=== PATIENT | female | born 1990 | race Caucasian/White ===

== ENCOUNTER 2020-07-07 04:37 | Emergency (ER) | payer OTHER, SELFPAY ==
--- NOTE | ~2020-07-07 | CT_ITS ---
EXAMINATION: CTA chest PE abdomen pel DATE: 07/07/2020 06:07 INDICATION: Chest pain. TECHNIQUE: Computed tomography angiography (CTA) of the chest was performed with 100 mL Omnipaque-350 intravenous contrast timed to evaluate the pulmonary arteries. Coronal maximum intensity projection 3D-reconstructions were created by the technologist. Computed tomography (CT) of the abdomen and pelv is was performed with intravenous contrast. Automated exposure control and iterative reconstruction t echnique were employed. The dose-length product was 777.12 mGy-cm. COMPARISON: None. FINDINGS: CTA chest: There is mild scarring at the lung apices. No pleural effusion. The heart size is normal. No pericardial effusion. There is no pulmonary embolus. CT abdomen and pelvis: The liver, gallbladder, spleen, pancreas, adrenal glands, and kidneys are norm al. There are no dilated loops of bowel. The appendix is normal. There are no pathologically enlarged lymph nodes. There is no free intraperitoneal fluid. The bones are unremarkable. IMPRESSION: 1. No pulmonary embolus. 2. No etiology for the patient's symptoms. Reviewed, dictated and finalized at location A.
[2020-07-07 04:41] VITALS: BP 128/51; PULSE 70; RESP 16; TEMP 36.9; O2SAT 99
[2020-07-07 04:47] VITALS: BP 120/63; PULSE 67; RESP 14; TEMP 36.9; O2SAT 100
--- NOTE | 2020-07-07 04:49 | ECG_ITS ---
Measurements Intervals [place] Rate: 63 P: 56 OR: 147 QRS: 86 QRSD: 96 T: 39 QT: 401 QTc: 411 Interpretive Statements SINUS RHYTHM MINIMAL Q WAVES- ANTEROLAT/INF LEADS BASELINE ARTIFACT- I, II, III, AVR, AVL, AVF, V1-V6 BORDERLINE ECG Electronically Signed On 07-07-2020 6:56:25 CDT by Sadiq Tee D.O.
--- NOTE | 2020-07-07 04:53 | PC.NURSE ---
Pt ambulated in yung to restroom and was unable to provide sample. Pt aware of need for urine and voices her understanding. Specimen cup provided.
[2020-07-07] MEDS: ASPIRIN 81 MG CHEWABLE TABLET 324 MG PO (05:02)
[2020-07-07 05:09] LABS: Basophils Absolute Auto 0.1 K/mm3 (0.0-0.1); Basophils Percent Auto 0.6 % (0.2-1.2); Eosinophils Absolute Auto 0.2 K/mm3 (0-0.3); Eosinophils Percent Auto 1.9 % (0-4.4); Hemoglobin 13.9 g/dL (12.0-15.0); Immature Granulocyte Absolute 0.02 K/mm3 (0.00-0.031); Immature Granulocyte Percent A 0.2 % (0-0.5); Lymphocytes Absolute Auto 4.15 K/mm3 (0.9-3.2); Lymphocytes Percent Auto 49.8 % (18.3-44.2); Mean Corpuscular HGB Conc 33.9 g/dl (32-36); Mean Corpuscular Hemoglobin 29.6 pg (26-34); Mean Corpuscular Volume 87.4 fl (80-100); Mean Platelet Volume 10.1 fl (7.4-10.4); Monocytes Absolute Auto 0.5 K/mm3 (0.1-0.6); Monocytes Percent Auto 6.1 % (2.6-8.5); Neutrophils Absolute Auto 3.5 K/mm3 (1.3-6.7); Neutrophils Percent Auto 41.4 % (45.5-73.1); Platelet Count Result 257 k/mm3 (150-375); Red Blood Count 4.69 M/mm3 (4.2-5.4); Red Cell Distribution Width 12.7 % (11.5-14.5); White Blood Count 8.3 K/mm3 (4.5-10.0)
[2020-07-07 05:24] LABS: INR 0.9; Prothrombin Time 12.3 Seconds (11.1-14.7)
[2020-07-07 05:25] LABS: Partial Thromboplastin Time 23.8 SECONDS (22.3-36.8)
[2020-07-07 05:33] LABS: Alanine Aminotransferase 14 U/L (4-35); Albumin Level 4.2 g/dL (3.5-5.1); Alkaline Phosphatase 64 U/L (38-126); Anion Gap 5 mmol/L (8-16); Aspartate Amino Transferase 27 U/L (14-36); Bilirubin,Total 0.1 mg/dL (0.2-1.3); Blood Urea Nitrogen 13 mg/dL (7-17); Calcium 9.3 mg/dL (8.4-10.2); Carbon Dioxide 27 mmol/L (22-30); Chloride 105 mmol/L (98-107); Estimated CRCL calculation 81 ml/min; Estimated Glomerular Filt Rate > 60; Glucose 99 mg/dL (65-105); Magnesium 1.7 mg/dL (1.6-2.3); Potassium 3.8 mmol/L (3.4-5.0); Sodium 137 mmol/L (137-145)
[2020-07-07 05:34] LABS: Troponin I < 0.012 ng/mL (0.000-0.034)
--- NOTE | 2020-07-07 05:39 | ED.GENADULT ---
HPI - General Adult General Chief complaint: Chest Pain <Dimitry Hurd MD - Last Filed: 07/07/20 05:40> Stated complaint: CHEST PAIN X1D <Dimitry Hurd MD - Last Filed: 07/07/20 05:40> Time Seen by Provider: 07/07/20 04:49 <Dimitry Hurd MD - Last Filed: 07/07/20 05:40> History of Present Illness HPI narrative: Patient is a 30-year-old female presents to emergency department with chief complaint of chest pain. Patient reports that she just completed a car ride for for medication and also takes oral contraceptive pills. The patient reports she has sharp pain in her chest rate. Patient reports that it is worse with inspiration. Patient states that she has no prior history of pulmonary embolisms no prior history of cardiac disease no family history for clotting disorder. Patient denies smoking. <Dimitry Hurd MD - Last Filed: 07/07/20 05:40> Related Data Allergies/adverse reactions: Allergies Allergy/AdvReac Type Severity Reaction Status Date / Time No Known Allergies Allergy Verified 04/27/18 13:25 <Dimitry Hurd MD - Last Filed: 07/07/20 05:40> Review of Systems Review of Systems: Narrative: A 10 system review of systems was completed on the patient and is negative except for what is stated in the HPI. Nursing and ancillary documentation was reviewed. <Dimityr Hurd MD - Last Filed: 07/07/20 05:40> [facility] Family History Family History: Family History Mother Patient's mother is in good health Family history of irritable bowel syndrome Father Patient's father is in good health Sibling Patient's sister is in good health <Dimitry Hurd MD - Last Filed: 07/07/20 05:40> Social History Social History: Social History Smoking status: Never smoker Alcohol intake: current <Dimitry Hurd MD - Last Filed: 07/07/20 05:40> Exam Narrative: Exam Narrative: GENERAL: Well-appearing, well-nourished, and in no acute distress. HEAD: Normocephalic, atraumatic. EYES: PERRLA and EOMI. ENT: Nares clear, no rhinorrhea or epistaxis. Mucous membranes moist. NECK: Supple. CHEST: Clear to auscultation. No respiratory distress. HEART: Regular rate and rhythm. No murmur heard. Normal peripheral pulses. ABDOMEN: Soft, nontender, nondistended, normal active bowel sounds. EXTREMITIES: Normal range of motion. No edema. SKIN: Warm, dry, no rash. NEURO: No focal deficits. Alert and oriented x3. PSYCH: Normal mood and affect. <Dimitry Hurd MD - Last Filed: 07/07/20 05:40> Course Vital Signs Vital signs: Vital Signs Temperature 36.9 C 07/07/20 04:41 Pulse Rate 70 07/07/20 04:41 Respiratory Rate 16 07/07/20 04:41 Blood Pressure 128/51 L 07/07/20 04:41 Pulse Oximetry 99 07/07/20 04:41 Temperature 36.9 C 07/07/20 04:47 Pulse Rate 83 07/07/20 07:08 Respiratory Rate 19 07/07/20 07:08 Blood Pressure 115/64 07/07/20 07:08 Pulse Oximetry 100 07/07/20 07:08 <Dimitry Hurd MD - Last Filed: 07/07/20 05:40> Vital Signs Temperature 36.9 C 07/07/20 04:41 Pulse Rate 70 07/07/20 04:41 Respiratory Rate 16 07/07/20 04:41 Blood Pressure 128/51 L 07/07/20 04:41 Pulse Oximetry 99 07/07/20 04:41 Temperature 36.9 C 07/07/20 04:47 Pulse Rate 83 07/07/20 07:08 Respiratory Rate 19 07/07/20 07:08 Blood Pressure 115/64 07/07/20 07:08 Pulse Oximetry 100 07/07/20 07:08 <Ra Perez MD - Last Filed: 07/07/20 07:32> Medical Decision Making Vital Signs Vital Signs: Vital Signs Temperature 36.9 C 07/07/20 04:41 Pulse Rate 70 07/07/20 04:41 Respiratory Rate 16 07/07/20 04:41 Blood Pressure 128/51 L 07/07/20 04:41 Pulse Oximetry 99 07/07/20 04:41 Temperature
[2020-07-07 05:45] VITALS: BP 120/71; PULSE 72; RESP 17; O2SAT 100
--- NOTE | 2020-07-07 05:53 | PC.NURSE ---
Pt to via cart.
[2020-07-07 05:54] LABS: Add Urine Microscopic? YES; Appearance Urine Clear (Clear); Bacteria Urine Trace /hpf; Bilirubin Urine Negative (Negative); Blood Urine Negative (Negative); Color Urine Straw (Yellow); Glucose Urine UA Negative (Negative); Ketones Urine Negative (Negative); Leukocyte Esterase Ur Trace LEU/UL (Negative); Mucus Urine Rare /lpf; Nitrate Urine Negative (Negative); Protein Urine Negative (Negative); RBC Urine 0-2 /hpf (0-2); Specific Grav Ur 1.009 (1.001-1.035); Urobilinogen Urine Negative mg/dL (<2.0); WBC Urine 0-3 /hpf
--- NOTE | 2020-07-07 06:05 | PC.NURSE ---
Pt returned from ct.
--- NOTE | 2020-07-07 07:04 | PC.NURSE ---
Pt resting on cart in its lowest position with call button and personal items within reach. Spouse remains at bedside. Pt remains alert, stable and in no obvious distress. Advised to press call button for assistance.
[2020-07-07 07:08] VITALS: BP 115/64; PULSE 83; RESP 19; O2SAT 100
[2020-07-07 08:02] VITALS: BP 111/56; PULSE 65; RESP 20; O2SAT 100
== END 2020-07-07 08:05 | disposition home or self-care (01) ==
PROVIDERS: Emergency Medicine; Emergency Provider Family Medicine; PCP Physician Assistant
DX: R07.89 Other chest pain (principal); R94.31 Abnormal electrocardiogram [ECG] [EKG]
CPT/HCPCS: 36415; 71275; 74177; 80053; 81001; 81025; 83735; 84484; 85025; 85610; 85730; 93005; 99284; A9270; Q9967

== ENCOUNTER 2023-05-26 13:45 | Outpatient (RCR) | payer OTHER, SELFPAY ==
[2023-05-27] MEDS: RHO(D) IMMUNE GLOBULIN 300 MCG/2 ML SYRINGE IM (15:21)
== END 2023-08-24 23:59 | disposition home or self-care (01) ==
LOC: ANHLAB 13:45
PROVIDERS: PCP Physician Assistant; Visit Provider Obstetrics & Gynecology
DX: Z29.13 Encounter for prophylactic Rho(D) immune globulin (principal); O36.0190 Maternal care for anti-D [Rh] antibodies, unspecified trimester, not applicable or unspecified; Z3A.00 Weeks of gestation of pregnancy not specified
CPT/HCPCS: 36415; 85461; 86850; 86900; 86901; 90384; 96372; J2790

== ENCOUNTER 2023-08-08 17:43 | Outpatient (CLI) | payer OTHER, SELFPAY ==
--- NOTE | 2023-08-08 18:20 | PC.NURSE ---
Called Dr. Bolden with pt status. Pt admitted with complaints of leaking of fluid. ROM plus negative. Pt denies feeling contractions. May D/C home.
== END 2023-08-08 18:30 | disposition home or self-care (01) ==
LOC: ANHOBOP 18:30 → ANHLDR 08-15 07:53
PROVIDERS: PCP Physician Assistant; Visit Provider Obstetrics & Gynecology
DX: O41.8X90 Other specified disorders of amniotic fluid and membranes, unspecified trimester, not applicable or unspecified (principal); Z3A.00 Weeks of gestation of pregnancy not specified
CPT/HCPCS: 59025; 84112; 99199

== ENCOUNTER 2023-08-09 18:06 | Inpatient (IN) | payer OTHER, SELFPAY ==
[2023-08-09] VITALS (14 sets, daily range): BP systolic 100–136; BP diastolic 51–94; PULSE 51–76; TEMP 36.5–36.6; BMI 28.3
[2023-08-09 18:48] LABS: Basophils Percent Auto 0.2 % (0.2-1.2); Eosinophils Percent Auto 0.4 % (0-4.4); Hematocrit 35.2 % (37.0-47.0); Immature Granulocyte Absolute 0.06 K/mm3 (0.00-0.031); Immature Granulocyte Percent A 0.6 % (0-0.5); Lymphocytes Absolute Auto 2.21 K/mm3 (0.9-3.2); Lymphocytes Percent Auto 23.6 % (18.3-44.2); Mean Corpuscular HGB Conc 34.1 g/dl (32-36); Mean Corpuscular Hemoglobin 29.9 pg (26-34); Mean Corpuscular Volume 87.8 fl (80-100); Mean Platelet Volume 11.1 fl (7.4-10.4); Monocytes Absolute Auto 0.4 K/mm3 (0.1-0.6); Monocytes Percent Auto 3.8 % (2.6-8.5); Neutrophils Absolute Auto 6.7 K/mm3 (1.3-6.7); Neutrophils Percent Auto 71.4 % (45.5-73.1); Platelet Count Result 178 k/mm3 (150-375); Red Blood Count 4.01 M/mm3 (4.2-5.4); Red Cell Distribution Width 13.3 % (11.5-14.5); White Blood Count 9.4 K/mm3 (4.5-10.0)
--- NOTE | 2023-08-09 19:13 | LDADM ---
This patient, Yin Li, was admitted to Labor/Delivery/Recovery 106 on 08/09/23 at 18:06. Plans for labor, pain management and were discussed with patient. Patient/family oriented to hospital policies and general routines including ID bracelet, bed and alarms, visiting hours, pain management, procedures, bathroom and other care routines, personal items, smoking policy, room service/diet and guest tray routines, infant security routines, and visiting hours. Patient/Family are encouraged to report perceived risks to care and to ask questions if they do not understand what they are told or what they should do. See OBIX for further documentation.
--- NOTE | 2023-08-09 19:20 | WPDANESEPP ---
Anes - Eval Pre Procedure Procedure: Labor epidural Date/Time: 08/09/23 19:20 Surgeon: Nina Kennedy Preop Diagnosis: Abdominal pain with contractions Pre Op Diagnosis: Induction of Labor Patient Data Age: 33 Gender: F Height: 1.73 m Weight: 84.5 kg Last Vital Signs Pulse 65 08/09/23 19:15 BP 124/69 08/09/23 19:15 O2 Del Method Room Air 08/09/23 19:12 Allergies Allergy/AdvReac Type Severity Reaction Status Date / Time No Known Allergies Allergy Verified 07/19/23 15:30 Home Medications Medication Instructions Recorded Confirmed Type vits no.126-ferrous fum 1 tablet PO DAILY 07/19/23 07/19/23 History 28 mg iron-folic acid 800 mcg tablet (Classic ) amoxicillin 500 mg tablet 500 mg DAILY 08/09/23 08/09/23 History Laboratory Tests 08/09/23 08/09/23 18:39 18:40 WBC 9.4 K/mm3 (4.5-10.0) RBC 4.01 L M/mm3 (4.2-5.4) Hgb 12.0 g/dL (12.0-15.0) Hct 35.2 L % (37.0-47.0) MCV 87.8 fl (80-100) MCH 29.9 pg (26-34) MCHC 34.1 g/dl (32-36) RDW 13.3 % (11.5-14.5) Plt Count 178 k/mm3 (150-375) MPV 11.1 H fl (7.4-10.4) Immature Gran % (Auto) 0.6 H % (0-0.5) Neut % (Auto) 71.4 % (45.5-73.1) Lymph % (Auto) 23.6 % (18.3-44.2) [place] % (Auto) 3.8 % (2.6-8.5) Eos % (Auto) 0.4 % (0-4.4) Baso % (Auto) 0.2 % (0.2-1.2) Lymph # (Auto) 2.21 K/mm3 (0.9-3.2) [place] # (Auto) 0.4 K/mm3 (0.1-0.6) Eos # (Auto) 0.0 K/mm3 (0-0.3) Baso # (Auto) 0.0 K/mm3 (0.0-0.1) Abs Immat Gran (auto) 0.06 H K/mm3 (0.00-0.031) Absolute Neuts (auto) 6.7 K/mm3 (1.3-6.7) Absolute Nucleated RBC 0.000 K/mm3 (0.0-0.012) Nucleated RBC % 0.0 % (0.0-0.2) RPR Pending HIV 1&2 Ab/P24 Ag 4thGn Pending Blood Type Pending Antibody Screen Pending : gestational age HCG: positive Patient hx anesthesia problems: none Family hx anesthesia problems: none Results Review: All pre-operative results and documents have been reviewed as part of the pre-operative evaluation. [facility] Past Medical History Medical History Overweight (BMI 25.0-29.9) and not yet delivered Family History Family History (Updated 07/19/23 @ 15:43 by Kaylin Pruitt RN) Mother Patient's mother is in good health Family history of irritable bowel syndrome Rheumatoid arthritis Father Patient's father is in good health Sibling Patient's sister is in good health Social History Social History Smoking status: Never smoker Second hand tobacco smoke exposure: No Alcohol intake: current Substance use: never Do You Feel Safe in your Home?: Yes Lack of Transportation: No Lack of Food: Never True Current Housing: I Have Housing Concerned About Future Housing: No Difficulty Paying Gas/Electric Bills: No Difficulty Paying for Meds: No Currently Unemployed: No Education: Bachelor's Degree Difficulty w/ Childcare or Family Care: No Spiritual care concerns: No Exam Day of Procedure 08/09/23 19:20 Patient weight: overweight
[2023-08-09 19:39] LABS: HIV 1/2 Ab P24 Ag Result Negative (Negative)
[2023-08-09] MEDS: DINOPROSTONE 10 MG VAG INSERT VAGINAL (19:42)
[2023-08-10] VITALS (89 sets, daily range): BP systolic 101–135; BP diastolic 44–97; PULSE 55–176; RESP 15–18; TEMP 36.3–36.8; O2SAT 96–100
--- NOTE | 2023-08-10 06:42 | PM.IMHP ---
H&P: HPI History of Present Illness Date/Time: 08/10/23 06:42 Chief Complaint: for induction Narrative: this is a 33-year-old 1 0 whose last menstrual period gives an EDC of 6 1 24 presents at 39 and half weeks gestation for induction of labor. has been uncomplicated. Her cervix is somewhat favorable. [facility] Past Medical History Medical History (Updated 08/10/23 @ 06:45 by Yanick Kennedy MD) Overweight (BMI 25.0-29.9) and not yet delivered Term Family History Family History Mother Patient's mother is in good health Family history of irritable bowel syndrome Rheumatoid arthritis Father Patient's father is in good health Sibling Patient's sister is in good health Social History Social History Smoking status: Never smoker Second hand tobacco smoke exposure: No Alcohol intake: current Substance use: never Do You Feel Safe in your Home?: Yes Lack of Transportation: No Lack of Food: Never True Current Housing: I Have Housing Concerned About Future Housing: No Difficulty Paying Gas/Electric Bills: No Difficulty Paying for Meds: No Currently Unemployed: No Education: Bachelor's Degree Difficulty w/ Childcare or Family Care: No Spiritual care concerns: No Meds Home Medications and Allergies Home Medications Medication Instructions Recorded Confirmed Type vits no.126-ferrous fum 1 tablet PO DAILY 07/19/23 07/19/23 History 28 mg iron-folic acid 800 mcg tablet (Classic ) amoxicillin 500 mg tablet 500 mg DAILY 08/09/23 08/09/23 History Allergies Allergy/AdvReac Type Severity Reaction Status Date / Time No Known Allergies Allergy Verified 07/19/23 15:30 Vital Signs Vital Signs - 24 hr 08/09/23 18:30 08/09/23 18:45 08/09/23 19:00 Temperature 97.7 F Pulse Rate 72 76 69 Blood Pressure 131/74 109/81 125/70 Oxygen Delivery 08/09/23 19:15 08/09/23 19:30 08/09/23 19:45 Temperature Pulse Rate 65 66 59 L Blood Pressure 124/69 136/73 115/94 H Oxygen Delivery 08/09/23 20:00 08/09/23 20:15 08/09/23 20:30 Temperature Pulse Rate 57 L 56 L 70 Blood Pressure 130/74 122/66 106/62 Oxygen Delivery 08/09/23 20:45 08/09/23 21:00 08/09/23 21:15 Temperature Pulse Rate 59 L 58 L 53 L Blood Pressure 109/54 L 103/61 109/54 L Oxygen Delivery 08/09/23 21:30 08/10/23 02:00 08/09/23 22:30 Temperature 98 F Pulse Rate 51 L 59 L Blood Pressure 100/51 L 132/66 Oxygen Delivery 08/10/23 02:30 08/09/23 19:12 Temperature 97.3 F L Pulse Rate Blood Pressure Oxygen Delivery Room Air Exam Const: General: cooperative, healthy appearing and comfortable Nutritional Appearance: average body habitus Orientation/consciousness: oriented to person, oriented to place and oriented to time HENMT: Head: normal to inspection Resp: Effort & Inspection: normal respiratory effort Cardio: Rate: regular rate Rhythm: regular rhythm Heart sounds: S1 normal heart sound present and S2 normal heart sound present GI: Inspection: normal to inspection ( Gravid soft uterus) : Speculum Exam - Vagina: normal appearance of the vagina Speculum Exam - Cervix: normal appearance of the cervix ( cervix 2/50/2. AROM. FHT reassuring) H&P: Results Labs Labs: Short CBC 08/09/23 Range/Units 18:40 WBC 9.4 (4.5-10.0) K/mm3 Hgb 12.0 (12.0-15.0) g/dL Hct 35.2 L (37.0-47.0) % Plt Count 178 (150-375) k/mm3 Assessment and Plan Assessment and plan (1) : Code(s): Z34.90 - Encounter for supervision of normal , unspecified, unspecified trimester Status: Acute Plan medical induction of labor. Spontaneous vaginal delivery is expected. She is an epidural candidate
[2023-08-10] MEDS: LACTATED RINGERS 1,000 ML 125 ML IV CONT ×2 (07:34→09:59)
[2023-08-10] MEDS: OXYTOCIN 30 UNITS/NS 500 ML 30 UNITS/500 ML BAG 6 UNITS IV CONT (07:35)
[2023-08-10] MEDS: fentaNYL CITRATE INJ (*CRX) 100 MCG/2 ML VIAL 50 MCG IV PUSH (10:12)
--- NOTE | 2023-08-10 12:11 | PM.OBPNLAB ---
Pain Control Date/time seen: 08/10/23 12:11 Pain control: tolerating well and epidural Pelvic Exam Dilation (cm): 3 Effacement (%): 90 station: -2 Amniotic membrane status: Leaking
--- NOTE | 2023-08-10 14:26 | PM.OBPRVD ---
OB - Vaginal Delivery Note Procedure Delivery date: 08/10/23 Events: Elective Induction of Labor Induction method: AROM Delivery augmentation: Pitocin Delivery monitor: External FHT and External Uterine Episiotomy description: None Laceration Description: None Specimen: No Quantitative Blood Loss (ml): 61 Anesthesia type: Epidural Disposition: Floor Complications: No immediate complications Baby Date of : 08/10/23 Time of : 14:18 Weeks of gestation at delivery: 39 Infant gender: Male presentation: vertex position: Right Occiput Anterior Placenta delivery description: Spontaneous Cord Vessel Description: 3 Vessels, Nuchal Cord, Tight and Clamped/Cut score one minute: 8 score five minutes: 9
--- NOTE | 2023-08-10 14:27 | P.DS_ITS ---
DS: Admitting Diagnosis Discharge Date 08/12/23 Admitting Diagnosis Term DS: Discharge Diagnosis Discharge Diagnosis (1) : Code(s): Z34.90 - Encounter for supervision of normal , unspecified, unspecified trimester Status: Acute DS: Summary Hospital Course Reason for hospitalization: patient was admitted for induction of labor on 08/10/2023 Hospital Course: patient underwent spontaneous vaginal delivery on 08/10/2023 with a dural Anesthesia. Her hospital course remarkable. She remained afebrile. She was up, voiding without difficulty, ambulating and eating regular diet, and generally without complaints. Time Spent with Patient Time attestation: Total time spent providing and/or coordinating discharge services: Exam Const: General: cooperative, healthy appearing and comfortable Nutritional Appearance: average body habitus Orientation/consciousness: oriented to person, oriented to place and oriented to time Resp: Effort & Inspection: normal respiratory effort Cardio: Rate: regular rate Rhythm: regular rhythm Heart sounds: S1 normal heart sound present and S2 normal heart sound present GI: Inspection: normal to inspection DS: Data Data Completed and Pending Labs on day of discharge: Labs from last 24 hours 08/09/23 08/09/23 18:40 18:39 WBC 9.4 RBC 4.01 L Hgb 12.0 Hct 35.2 L MCV 87.8 MCH 29.9 MCHC 34.1 RDW 13.3 Plt Count 178 MPV 11.1 H Immature Gran % (Auto) 0.6 H Neut % (Auto) 71.4 Lymph % (Auto) 23.6 [place] % (Auto) 3.8 Eos % (Auto) 0.4 Baso % (Auto) 0.2 Lymph # (Auto) 2.21 [place] # (Auto) 0.4 Eos # (Auto) 0.0 Baso # (Auto) 0.0 Abs Immat Gran (auto) 0.06 H Absolute Neuts (auto) 6.7 Absolute Nucleated RBC 0.000 Nucleated RBC % 0.0 RPR Pending HIV 1&2 Ab/P24 Ag 4thGn Negative Blood Type A Negative Antibody Screen Positive Antibody Identification Passive Due to RH Imm Glob Antigen Identification TNP BRIANDA, IgG Interpret Neg BRIANDA, Poly Interpret Not Performed BRIANDA, Complement Interp Negative Discharge Plan Discharge Attending physician on discharge: Yanick Swain Discharging Clinician: Yanick Swain Patient Disposition: Home, Self-Care Activity: may shower and pelvic rest Diet: heart healthy Wound Care Instructions: follow printed instructions Patient Instructions: Antibiotic Form Stand Alone Forms: General Discharge Information Follow-up/Referrals: Yanick Swain MD [Physician] - Discharge Medications: Continued Classic 28 mg iron- 800 mcg Tablet 1 tablet PO DAILY amoxicillin 500 mg tablet 500 mg DAILY Date of admission: 08/09/23 18:06 Primary Care Provider: ChristopherAlise Admitting Provider: Yanick Swain Attending physician on admission: Yanick Swain Condition: Stable
[2023-08-10 14:53] LABS: Rapid Plasma Reagin Non-Reactive (NonReactive)
[2023-08-10] MEDS: OXYTOCIN 30 UNITS/NS 500 ML 30 UNITS/500 ML BAG 125 UNITS IV CONT (14:53)
[2023-08-10] MEDS: WITCH HAZEL 40 PADS 1 PAD TOPICAL (16:50)
[2023-08-10] MEDS: DOCUSATE SODIUM 100 MG CAPSULE PO (23:33)
[2023-08-11 05:08] VITALS: BP 110/70; PULSE 66; RESP 18; TEMP 36.7; O2SAT 100
[2023-08-11 05:54] LABS: Hematocrit 35.9 % (37.0-47.0); Hemoglobin 11.8 g/dL (12.0-15.0)
--- NOTE | 2023-08-11 06:54 | PM.OBPNVD ---
OB - PN: Subj Subjective Date/time seen: 08/11/23 06:54 Patient comments: no complaints and pain well controlled baby status: doing well OB - PN: Obj Data Labs 08/11/23 05:04 Labs: Laboratory Results - last 24 hr 08/09/23 08/11/23 18:39 05:04 Hgb 11.8 L Hct 35.9 L RPR Non-reactive OB - PN A/P Plan day: 1 Plan: routine care Time Spent With Patient Time: Total time spent is greater than 50% in coordination of care (as documented) at patient's floor/unit and/or counseling patient: Time with patient: less than 15 minutes Exam Const: General: cooperative, healthy appearing and comfortable Nutritional Appearance: average body habitus Orientation/consciousness: oriented to person, oriented to place and oriented to time HENMT: Head: normal to inspection Resp: Effort & Inspection: normal respiratory effort Cardio: Rate: regular rate Rhythm: regular rhythm Heart sounds: S1 normal heart sound present and S2 normal heart sound present GI: Inspection: normal to inspection
[2023-08-11 08:40] VITALS: BP 109/62; PULSE 61; RESP 16; TEMP 36.3; O2SAT 99
--- NOTE | 2023-08-11 08:55 | WPDANLDPN2 ---
Anes-Prog Note L&D Date/Time: 08/11/23 08:55 Comfortable throughout: labor and delivery Neuraxial method: epidural Epidural/Spinal procedure site: clean & non-tender Neuro status: Neuro function grossly intact. Cardiovascular status: normal Respiratory status: normal Airway patency: baseline Mental status: baseline Post-Op hydration status: normal Vital Signs: Last Vital Signs Temp 36.7 C 08/11/23 05:08 Pulse 66 08/11/23 05:08 Resp 18 08/11/23 05:08 BP 110/70 08/11/23 05:08 Pulse Ox 100 08/11/23 05:08 O2 Del Method Room Air 08/11/23 05:08 Pain score (VAS): 0 Post-procedural complaints: none Patient feedback: Patient satisfied with anesthetic care.
[2023-08-11 12:12] VITALS: BP 104/67; PULSE 63; RESP 16; TEMP 36.3; O2SAT 99
[2023-08-11] MEDS: ACETAMINOPHEN 325 MG TABLET 650 MG PO (15:16)
[2023-08-11 19:50] VITALS: BP 113/65; PULSE 57; RESP 18; TEMP 36.9
[2023-08-11] MEDS: IBUPROFEN 600 MG TABLET PO (19:55)
--- NOTE | 2023-08-12 06:31 | PM.OBPNVD ---
OB - PN: Subj Subjective Date/time seen: 08/12/23 06:31 Patient comments: no complaints and pain well controlled baby status: doing well OB - PN: Obj Data Labs 08/11/23 05:04 OB - PN A/P Plan day: 2 Plan: routine care, discharge home and follow up 6 weeks Time Spent With Patient Time: Total time spent is greater than 50% in coordination of care (as documented) at patient's floor/unit and/or counseling patient: Time with patient: less than 15 minutes Exam Const: General: cooperative, healthy appearing and comfortable Nutritional Appearance: average body habitus Orientation/consciousness: oriented to person, oriented to place and oriented to time Resp: Effort & Inspection: normal respiratory effort Cardio: Rate: regular rate Rhythm: regular rhythm Heart sounds: S1 normal heart sound present and S2 normal heart sound present GI: Inspection: normal to inspection
[2023-08-12 08:05] VITALS: BP 106/60; PULSE 60; RESP 16; TEMP 36.4; O2SAT 99
[2023-08-12] MEDS: DOCUSATE SODIUM 100 MG CAPSULE PO (09:59)
[2023-08-12] MEDS: IBUPROFEN 600 MG TABLET PO (09:59)
[2023-08-15 11:19] VITALS: BP 118/67; PULSE 77; RESP 18; TEMP 37.1; O2SAT 99
== END 2023-08-12 13:35 | disposition home or self-care (01) | DRG 807 ==
LOC: ANHLDR 08-10 14:29 → ANHOB2 08-10 17:24
PROVIDERS: Admitting Provider Obstetrics & Gynecology; PCP Physician Assistant; Visit Provider Obstetrics & Gynecology
DX: O69.1XX0 Labor and delivery complicated by cord around neck, with compression, not applicable or unspecified (principal); Z37.0 Single live birth; Z3A.39 39 weeks gestation of pregnancy
CPT/HCPCS: 36415; 59025; 84112; 85014; 85018; 85025; 86592; 86703; 86850; 86880; 86900; 86901; 99199; A9270; G0432; J2590; J2795; J3010; J7120

== ENCOUNTER 2024-04-30 12:53 | Outpatient (CLI) | payer OTHER, SELFPAY ==
[2024-04-30 13:27] LABS: Hematocrit 39.9 % (37.0-47.0); Hemoglobin 13.4 g/dL (12.0-15.0)
--- OUTSIDE RECORDS SUMMARY | 2024-04-30 15:20 | XMS_ITS | Clinical Summary ---
Author Organization [facility] HealthCare Care Team Providers Care Hose Inspector And Patcher Name Role Phone CharAlise gambino Maria Del Rosario [facility] Pr ovider Miguel Ángel Diaz MD Unavailable [phone] Allergies No known active allergies Medications norethindrone-e. estradiol-iron (LOESTIN 24 FE) 1 mg-20 mcg (24)/75 mg (4) per tablet Take 1 tablet by mouth daily Active adapalene-benzoy l peroxide (Epiduo Forte) 0.3-2.5 % gel with pump Active clindamycin-candelaria oyl peroxide (Onexton) 1.2 %(1 % base) -3.75 % gel uses it daily. Active clindamycin phosphate foam Activ e clotrimazole-bet amethasone (LOTRISONE) cream Active ondansetron (ZOFRAN) 4 mg tablet Take 1 tablet (4 mg total) by mouth every 6 (six) hours as needed 12/20/2022 Active spironolactone (ALDACTONE) 100 mg tablet Take 1 tablet (100 mg total) by mouth daily Active doxycycline 100 mg tablet 09/13/2023 Active Active Problems Problem Noted Date Diagnosed Date Acute pharyngitis 01/03/2023 Cough 01/03/2023 Diarrhea 01/03/2023 Fatigue 01/03/2023 Herpes zoster 01/03/2023 Inguinal lymphadenopathy 01/03/2023 Laryngitis 01/03/2023 Lesion of breast 01/03/2023 Lesion of nipple 01/03/2023 Nonspecific syndrome suggestive of viral illness 01/03/2023 Posterior rhinorrhea 01/03/2023 Sore nipple 01/03/2023 Upper respiratory infection 01/03/2023 Rash 06/19/2018 Assessment & Plan (07/06/2018 3:45 PM CDT): Jeet presents for evaluation of a new rash and chronic joint pain. The rash consisted of small (~1-2 mm) non-pruritic, non-painful papules on bilateral lower extremity distal to the knee, improved after two courses of methylprednisolone. Evaluation by her CURRICULUM AND INSTRUCTION DIRECTOR apparently revealed a low positive ds DNA, report unavailable at present. She has had chronic bilateral knee, ankle, and low back pain for many years without any significant AM stiffness. +Chronic dry eyes and photosensitive rashes. Our workup revealed negative serologies, xrays with only mild lower lumbar facet arthropathy, and right hand ultrasound without significant inflammatory changes. At present suspect that her joint complaints are mechanical in origin, and there are no findings in her workup to suggest an active inflammatory arthritis or CTD. Recommend that she see dermatology for evaluation if the rash recurs. Follow up with our office as needed should symptoms warrant. Assessment & Plan (06/19/2018 12:20 PM CDT): Jeet presents for evaluation of a new rash and chronic joint pain. The rash consisted of small (~1-2 mm) non-pruritic, non-painful papules on bilateral lower extremity distal to the knee, improved after two courses of methylprednisolone. Evaluation by her CURRICULUM AND INSTRUCTION DIRECTOR apparently revealed a low positive ds DNA, report unavailable at present. She has had chronic bilateral knee, ankle, and low back pain for many years without any significant AM stiffness. +Chronic dry eyes and photosensitive rashes. On exam she has questionable swelling in a couple joints and ttp of her L 3rd- 5th MTP, where she notes a previous fracture. The previous rash has essentially resolved at this time. Her joint complaints may likely be mechanical in origin, however she does have questionable swelling in a couple joints on exam and she reports chronic dry eye and photosensitive rashes as could be seen with a CTD such as lupus. To fully evaluate will check appropriate serologies, xrays, and ultrasound with plan for follow up in 2 weeks to review results and to discuss treatment options. Polyarthralgia 06/19/2018 Overview (06/23/2018): US right hand/wrist (06/23/18): Mild effusions and power doppler on examination which will have to be correlated clinically. Grade 1 effusion in the 4th wrist compartment, volar 4th MCP and 3rd PIP joint. Moderate synovial thickening in the wrist. Mild synovial thickening in the 2nd and 3rd PIP joints. Encounters Date Type Department Care Team Description 03/15/2024 10:00 AM CLEANER OPERATOR Office Visit [facility] at [address] [address] Debra Salomon, [place] Laceration of finger of right hand without damage to nail, foreign body presence unspecified, unspecified finger, initial encounter (Primary Dx) from Last 3 Months Social History Tobacco Use Types Packs/Day Years Used Date Smoking Tobacco: Never Assessed Comments Unknown Sex and Gender Information Value Date Recorded Sex Assigned at Not on file Legal Sex Female 8:38 PM CLEANER OPERATOR Gender Identity Not on file Sexual Orientation Not on file Obstetrics History Last Filed Vital Signs Vital Sign Reading Time Taken Comments Blood Pressure 104/60 03/15/2024 10:04 AM CLEANER OPERATOR Pulse 78 03/15/2024 10:04 AM CLEANER OPERATOR Temperature 36.8 C (98.2 F) 03/15/2024 10:04 AM CLEANER OPERATOR Respiratory Rate 20 03/15/2024 10:04 AM CLEANER OPERATOR Oxygen Saturation 98% 03/15/2024 10:04 AM CLEANER OPERATOR Inhaled Oxygen Concentration - - Weight 80.7 kg (178 lb) 03/15/2024 10:04 AM CLEANER OPERATOR Height 172.7 cm (5' 8 ) 10/21/2023 10:43 AM CDT Body Mass Index 27.06 10/21/2023 10:43 AM CDT Plan of Treatment Health Maintenance Due Date Last Done Comments Cervical Cancer Screening 1990 Depression Screening 1990 DTaP/Tdap/Td Vaccine (1 - Tdap) 2001 Varicella Vaccines (1 of 2 - 13+ 2-dose series) 2003 Hepatitis B Screening 2008 Regular Well Visit/Exam 18-64 2008 Covid-19 Vaccine (3 - 2023-2 5 season) 2023 07/10/2020, 06/12/2020 Influenza Vaccine (#1) 2023 Hepatitis C Screening Completed 06/19/2018 HPV Vaccines Aged Out No longer eligi ble based on patient's age to complete this topic Pneumococcal vaccine <65 Aged Out No longer eligible based on patient's age to complete this topic Procedures Procedure Name Priority Date/Time Associated Diagnosis Comments HEPATITIS C ANTIBODY Routine 06/19/2018 11:32 AM CDT Polyarthralgia Rash from Last 3 Months or Most Recently Relevant to Health Maintenance Results * Hepatitis C antibody (06/19/2018 11:32 AM CDT) Hep C Ab NON-REACT SHUN NON-REACT SHUN [facility] [place] SIGNAL TO CUT-OFF 0.01 <1.00 [facility] [place] Comment: HCV antibody was non-reactive. There is no laboratory evidence of HCV infection. In most cases, no further action is required. However, if recent HCV exposure is suspected, a test for HCV RNA (test code 05018) is suggested. For additional information please refer to http://education.Gifi/faq/GJI64i7 (This link is being provided for informational/ educational purposes only.) Blood specimen (specimen) 06/19/2018 11:32 AM CDT 06/19/2018 11:33 AM CDT Narrative Resulting Agency Comment Performing Organization Information: Site ID: [place] Name: [facility] Address: [address] [place] [address] [place], [place] [address] Director: Chinmay Pleitez D.O., MPH [facility] MICROBIOLOGY - GENERA L ORDERABLES Final Result [facility] [place] from Last 3 Months or Most Recently Relevant to Health Maintenance Insurance [facility] CHOICE PLUS Member Subscriber Plan / Payer (Ef fective 2022-) Name:JenYin Relation to Subscriber:Self Name:JenYin Payer ID:[id number] ([facility]) Type:[facility] HMO/PPO Address: [address] CHOICE PLUS Care Teams Hose Inspector And Patcher Relationship Specialty Start Date End Date Alise White PA PCP - General Physician Labor/Excavator 06/02/18 Miguel Ángel Diaz MD [address] [address] Consulting Physician Rheumatology 06/02/18
--- OUTSIDE RECORDS SUMMARY | 2024-04-30 15:20 | XMS_ITS | Data Portability ---
Author Organization [facility] Dayami Bullock Address [address] [place] [address] Care Team Providers Care Public Works Manager Name Role Phone JUAN M BLAIR Primary Care Provider CHANDA Marrero Nutrition Partner [phone] Assessment No assessment recorded. Plan of Treatment Reminders Order Date Submit Date Provider Last Modified By Organization Details Last Modified Time Details Appointments None recorded. Lab TSH + free T4, serum 2023 024 [facility] [employer] [facility], [address], [place], [address], 4 16:52:43 CBC w/ auto diff 2023 024 [employer] [facility], [address], [place], [address], 4 16:51:54 iron + TIBC + ferritin, serum 2023 024 [facility], [address], [place], [address], 4 16:51:09 lipid panel, serum 2023 024 [employer] [facility], [address], [place], [address], 4 16:51:22 CMP, serum or plasma 2023 024 [employer] [facility], [address], [place], [address], 4 16:52:34 vitamin B12 + folate, serum or blood 2023 024 [facility] [employer] [facility], [address], [place], [address], 4 16:51:43 HbA1c (hemoglob in A1c), blood 2023 024 [facility] [employer] [facility], [address], [address], [place], [address], 4 16:52:06 Referral None recorded. Procedures None recorded. Surgeries None recorded. Imaging None recorded. Medication Orders None recorded. Patient TargetsNo targets recorded. Patient InstructionsNo instructions recorded. Reason for Referral None Reported. Results Created Date Observation Date Name Description Value Unit Range Abnormal Flag Note LastModifiedBy Organization Detail LastModifiedTime Result Notes None recorded. Problems Name Problem SNOMED Code Status Onset Date Resolution Date Notes Provider Name and Address Organization Details Recorded Time Body mass index 25-29 - overweight 280560441 Active 024 Emelia Fallon MA [facility], [place] - [place] 4 10:28:44 Long-term drug therapy Active 024 RAKAN Ly Attn: Ameya campos,[address] [facility], [place], [address], [facility] - [place] 4 00:19:23 Problem Notes None recorded. Medical Equipment None Reported. Allergies No known drug allergies Medications Name Sig Start Date Stop Date Status Note LastModified by Organization Details LastModified Time tretinoin 0.025 % topical cream active Not Available Not Available Not Available ondansetron HCl 4 mg tablet TAKE 1 TABLET BY MOUTH EVERY 6 HOURS NEEDED 12/05 completed Not Available Not Available Not Available spironolacto ne 100 mg tablet active Not Available Not Available Not Available amoxicillin 500 mg tablet 12/05 completed Not Available Not Available Not Available tacrolimus 0.1 % topical ointment 12/05 completed Not Available Not Available Not Available fluoxetine 20 mg capsule TAKE 1 CAPSULE BY MOUTH DAILY 12/05 completed Not Available Not Available Not Available doxycycline hyclate 100 mg tablet active Not Available Not Available No t Available clindamycin phosphate 1 % topical solution active Not Available Not Available Not Available Vitals Date Recorded Body height Respiratory rate Oxygen saturation Oxygen saturation in Arterial blood by Pulse oximetry Heart rate Systolic blood pressure Diastolic blood pressure Provider Name and Address Organization Details Last Updated DateTime 172.72 cm 18 /min 98 % 98 % 63 /min 120 mm[Hg] 82 mm[Hg] Emelia Fallon MA [facility] 4 10:29:45 Date Recorded Body mass index (BMI) Body weight Systolic blood pressure Diastolic blood pressure Systolic blood pressure Diastolic blood pressure Provider Name and Address Organization Details Last Updated DateTime 4 26.5 kg/m2 77443.1 5 g 98 mm[Hg] 70 mm[Hg] 98 mm[Hg] 70 mm[Hg] RAKAN Ly Attn: Ameya campos,[address] [place], [address], [facility] 4 10:45:34 Social History Question Answer Notes LastModified by Organizat ion Details LastModified Time Tobacco Smoking Status Never Smoker Emelia Fallon MA [facility], [facility] 12/06/2023 10:27:38 Do You Have An Advance Directive? No Information not available 12/06/2023 What Is Your Level Of Alcohol Consumption? Occasional Information not available 12/06/2023 Are You Blind Or Do You Have Difficulty Seeing? No Information not available 12/06/2023 What Is Your Level Of Caffeine Consumption? Occasional Coffee Information not available 12/06/2023 In The 14 Days Before Symptom Onset, Have You Had Close Contact With A Laboratory-confir med COVID-19 While That Case Was Ill? No Information not available 12/06/2023 In The 14 Days Before Symptom Onset, Have You Had Close Contact With A Person Who Is Under Investigation For COVID-19 While That Person Was Ill? No Information not available 12/06/2023 Have You Been To An Area Known To Be High Risk For COVID-19? No Information not available 12/06/2023 Are You Deaf Or Do You Have Serious Difficulty Hearing? No Information not available 12/06/2023 What Type Of Diet Are You Following? REGULAR Information not available 12/06/2023 What Was The Date Of Your Most Recent Tobacco Screening? 12/06/2023 Information not available 12/06/2023 What Is Your Relationship Status? Information not available 12/06/2023 Do You Use Your Seat Belt Or Car Seat Routinely? Yes Information not available 12/06/2023 Do You Have Smoke And Carbon Monoxide Detectors In Your Home? Yes Information not available 12/06/2023 Do You Use Any Illicit Or Recreational Drugs? No Information not available 12/06/2023 Do You Use Sunscreen Routinely? Yes Information not available 12/06/2023 Has Tobacco Cessation Counseling Been Provided? No Information not available 12/06/2023 Do You Or Have You Ever Used Any Other Forms Of Tobacco Or Nicotine? No Information not available 12/06/2023 Sex: Female Functional Status Question Answer Note LastModified by Organizat ion Details LastModified Time Are you able to care for yourself? Yes Information not available 12/06/2023 What is your exercise level? Occasional Information not available 12/06/2023 Mental Status None recorded. Family History Relationship Description Onset Age of this Age Resolved Age Notes LastModified by Organization Details LastModified Time Father Hypertensive disorder [email or web address] Not available 2023 10:31:16 Sister Depressive disorder [email or web address] Not available 2023 10:31:21 Medical History Condition Response Coronary Artery Disease N Other N High Blood Pressure N Atrial Fibrillation N Kidney or Bladder Problems N Thyroid Problems N GI Problems N Depression N COPD N Blood Clots N Have you had a mammogram in the last yea r? N Skin Problems N Anemia N Heart Attack ([place]) N Anxiety Disorder N Diabetes N Muscle, Joint, or Bone Problems N Seizures/Epilepsy N Have you had a colonoscopy in the last 1 0 years? N Acid Reflux (GERD) N Cancer N Stroke N Asthma N Allergies N Have you had a PSA blood test in the las t year? N High Cholesterol N Hepatitis N Liver Disease N Headaches N Heart Failure N Osteoporosis N Gynecological History Statement/Question Response Menses Monthly N Duration of Flow (days) Current Control Method None Obstetrics History GPAL:G 1 P 1 0 0 1 Type Value Full Term 1 Induced 0 Spontaneous 0 Premature 0 Living 1 Total 1 Past Encounters Encounter ID Performer Location Encounter Start Date Encounter Closed Date Diagnosis/Indication Diagnosis SNOMED-CT Code Diagnosis ICD10 Code Diagnosis Note [id number] RAKAN Ly [facility] [address] [place] [address] 12/06/2023 10:04:50 12/06/2023 10:57:05 Body mass index 25-29 - overweight 354053558 Z68.26 BMI is 26.5 Adult heal th examination 752919186 Z00.00 Annual wellness exam completed Lightheadedness 92317248 8 R42 Lightheade dness reported. We will await lab values to see if she has any anemia or electrolyt e disturbanc e state 7782372 1 Z39.2 Patient is noted to be several months Menorrhagia 792695288 N9 2.0 Check CBC and iron studies for heavy menstrual cycles Long-term drug therapy 349992472 Z79.899 Routine CMP and vitamin B12 and folate are ordered Cholesterol screening 27 3397255 Z13.220 Fasting lipid panel due Diabetes m ellitus screening 695910723 Z13.1 A1c diabetes screening due for risk assessment Thyroid di sorder screening 935174114 Z13.29 Routine thyroid function testing due especially . Health Concerns Section Related Observation LastModified by Organization Detai ls LastModified Time None Recorded Concern Status LastModified by Organization Details LastModified Time None Recorded Advance Directives Directive N: Payers Encounter Date Sequence Insurance Name Policy Number Policy Gonzalez Covered Member ID Gonzalez Member ID Guarantor Name 12/06/[address] [place] [address] [id number] Jen Montague [id number] Clari Li Notes Date Note Type Note Provider Name and Address Organization Details Recorded Time 12/06/2023 text/html Patient is here for annual wellness exam. She is several months. She does report heavy periods along with some lightheadedness and a little bit of chest tightness every once in awhile. This has just been since her heavy menstrual cycles. She is due for blood work. No shortness a breath no fevers chills diarrhea nausea vomiting or constipation. No abdominal pain. RAKAN Ly Attn: [employer] [place], [address], [place] [facility] 12/13/2023 00:20:01 OBGyn Episode No OBEpisode recorded.
--- OUTSIDE RECORDS SUMMARY | 2024-04-30 15:20 | XMS_ITS | Referral Summary ---
Author Organization [facility] HealthCare Care Team Providers Care Rib Stiffener And Heel Dipper Name Role Phone CharAlise gambino Maria Del Rosario [facility] Primary Care Pr ovider Miguel Ángel Diaz MD Unavailable [phone] Encounters Date Type Department Care Team Description 03/15/2024 10:00 AM RESORT HOUSEKEEPER Office Visit [facility] at [address] [address] Debra Salomon, [place] Laceration of finger of right hand without damage to nail, foreign body presence unspecified, unspecified finger, initial encounter (Primary Dx) from Last 3 Months Allergies No known active allergies Medications norethindrone-e. [...] Assessment & Plan (07/06/2018 3:45 PM CDT): 28Davian presents for evaluation of a new rash and chronic joint pain. The rash consisted of small (~1-2 mm) non-pruritic, non-painful papules on bilateral lower extremity distal to the knee, improved after two courses of methylprednisolone. Evaluation by her CREPE LAMINATOR OPERATOR apparently revealed a low positive ds DNA, [...] Assessment & Plan (06/19/2018 12:20 PM CDT): 28Davian presents for evaluation of a new rash and chronic joint pain. The rash consisted of small (~1-2 mm) non-pruritic, non-painful papules on bilateral lower extremity distal to the knee, improved after two courses of methylprednisolone. Evaluation by her CREPE LAMINATOR OPERATOR apparently revealed a low positive ds DNA, [...] in the 2nd and 3rd PIP joints. Social History Tobacco Use Types Packs/Day Years Used Date Smoking Tobacco: Never Assessed Comments Unknown Sex and Gender Information Value Date Recorded Sex Assigned at Not on file Legal Sex Female 8:38 PM RESORT HOUSEKEEPER Gender Identity Not on file Sexual Orientation Not on file Last Filed Vital Signs Vital Sign Reading Time Taken Comments Blood Pressure 104/60 03/15/2024 10:04 AM RESORT HOUSEKEEPER Pulse 78 03/15/2024 10:04 AM RESORT HOUSEKEEPER Temperature 36.8 C (98.2 F) 03/15/2024 10:04 AM RESORT HOUSEKEEPER Respiratory Rate 20 03/15/2024 10:04 AM RESORT HOUSEKEEPER Oxygen Saturation 98% 03/15/2024 10:04 AM RESORT HOUSEKEEPER Inhaled Oxygen Concentration - - Weight 80.7 kg (178 lb) 03/15/2024 10:04 AM RESORT HOUSEKEEPER Height 172.7 cm (5' 8 ) 10/21/2023 10:43 AM CDT Body Mass Index 27.06 10/21/2023 10:43 AM CDT Plan of Treatment Not on file Procedures Procedure Name Priority Date/Time Associated Diagnosis [...] a test for HCV RNA (test code 04598) is suggested. For additional information please refer to http://education.Right Relevance/faq/BXQ02b8 (This link is being provided for informational/ educational purposes only.) Blood specimen (specimen) 06/19/2018 11:32 AM CDT 06/19/2018 11:33 AM CDT Narrative Resulting Agency Comment Performing Organization Information: Site ID: [place] Name: [facility] Mcclure Address: [address] [place] [address] Director: Chinmay Pleitez D.O., MPH [facility] MICROBIOLOGY - GENERA L ORDERABLES Final Result Performing Organization Address City/State/[facility] Co de Phone Number YESSENIA Mishraexa [place] from Last 3 Months or Most Recently Relevant to Health Maintenance Insurance CHOICE PLUS [facility] CHOICE PLUS Member Subscriber Plan / Payer (Ef fective 2022-Present) Name:Yin Li Relation to Subscriber:Self Name:Yin Li Payer ID:[id number] ([facility]) Type:[facility] HMO/PPO Address: [address] CHOICE PLUS Care Teams Rib Stiffener And Heel Dipper Relationship Specialty Start Date End Date Alise White PA PCP - General Physician Hydroelectric Mechanic 06/02/18 Miguel Ángel Diaz MD [address] [address] Consulting Physician Rheumatology 06/02/18
== END 2024-04-30 12:54 | disposition home or self-care (01) ==
PROVIDERS: PCP Physician Assistant; Visit Provider Obstetrics & Gynecology
DX: Z01.818 Encounter for other preprocedural examination (principal); N92.6 Irregular menstruation, unspecified
CPT/HCPCS: 36415; 85014; 85018

== ENCOUNTER 2024-05-04 04:52 | Day surgery (SDC) | payer OTHER, SELFPAY ==
[2024-04-26 10:35] VITALS: BMI 25.9
--- NOTE | 2024-04-26 10:41 | PC.NURSE ---
Report to the Outpatient Waiting Room, entrance under the green pavilion located off [facility], at time _0630_ on date _[id number]_. Planned Procedure Time: _0830_.? Time changes happen often and if your time is changed the preop area will call you the afternoon before. - You and your visitor will be asked to self-screen and do not enter if you have any COVID symptoms. Please call surgeon if you need to reschedule. - A mask is optional within the hospital at this time. Patients may have clear liquids (water, carbonated beverages, clear teas, apple juice) until 3 hours prior to surgery with a maximum of 20 ounces. - No food from midnight until time of surgery and no smoking, or chewing tobacco (or any form of nicotine). No chewing gum, candy or mints. Take only the following medications with a SIP of water on the morning of surgery: __None DO NOT STOP ANY OF YOUR OTHER PRESCRIPTION MEDICATIONS PRIOR TO SURGERY EXCEPT THE FOLLOWING Hold all vitamins and supplements for 3 days per anesthesiologist. Medications to discontinue per physician Date to take last nxpx___[id number]____ Please no make-up, nail cymro, hairspray, perfume, deodorant, or body powder the day of surgery.? No jewelry (including any body piercings) or valuables the day of surgery, leave them at home.? Please take a shower or bath the night before, or the morning of, surgery with an antibacterial soap.? Wear comfortable, loose fitting clothing.? - Jewelry must be removed prior to entering the operating room.? Rings and piercings that are not removed may be cut off. - The hospital will not accept responsibility for valuables.? - Please leave all valuables, including medications, at home the day of surgery. If you are going home after surgery, a licensed ice cream truck driver must drive you home.? - NO public transportation without another adult if you receive anesthesia. - We recommend that an adult stay with you for 24 hours following discharge. - We also recommend that you do not drive, make important decision, drink alcoholic beverages, or take any drugs that were not prescribed by your health care provider for at least 24 hours after your discharge time. Follow any additional instructions given to you from your surgeon. Telephone instructions given to __Yin__and asked if any additional questions and then verbalized understanding. Patient advised to call surgeon office or pre surgery nurse liaison [phone] if any additional questions.
--- NOTE | 2024-05-02 07:18 | PM.IMHP ---
H&P: HPI History of Present Illness Date/Time: 05/02/24 07:18 Chief Complaint: Uterine polyp excessive heavy bleeding Narrative: This is a 33-year-old female admitted for hysteroscopy dilatation curettage polypectomy. Ultrasound shows thickened area what appears to be uterine polyp. She will undergo hysteroscopy D&C polypectomy is noted. Risks and benefits reviewed exclusive of , aspiration, bleeding, transfusion, perforation injury to bowel, bladder, ureters, or other internal organs with need for open laparotomy. She received the ACOG handout entitled hysteroscopy as well as dilatation curettage respectively. She had all questions answered. She asked to proceed. Review of Systems Review of Systems: A 10 system review of systems was completed on the patient and is negative except for what is stated in the HPI. Nursing and ancillary documentation was reviewed. [facility] Past Medical History Medical History Term and not yet delivered Overweight (BMI 25.0-29.9) Family History Family History Mother Patient's mother is in good health Family history of irritable bowel syndrome Rheumatoid arthritis Father Patient's father is in good health Sibling Patient's sister is in good health Social History Social History Smoking status: Never smoker Second hand tobacco smoke exposure: No Alcohol intake: current Substance use: never Do You Feel Safe in your Home?: Yes Lack of Transportation: No Lack of Food: Never True Current Housing: I Have Housing Concerned About Future Housing: No Difficulty Paying Gas/Electric Bills: No Difficulty Paying for Meds: No Currently Unemployed: No Education: Bachelor's Degree Difficulty w/ Childcare or Family Care: No Living arrangements: with family Spiritual care concerns: No Meds Home Medications and Allergies Home Medications ?Medication ?Instructions ?Recorded ?Confirmed ?Type vits no.126-ferrous fum 1 tablet PO DAILY 07/19/23 04/26/24 History 28 mg iron-folic acid 800 mcg tablet (Classic ) choline 500 mg tablet 500 mg PO DAILY 04/26/24 04/26/24 History doxycycline hyclate 100 mg tablet 100 mg PO DAILY 04/26/24 04/26/24 History spironolactone 50 mg tablet 150 mg PO DAILY 04/26/24 04/26/24 History Allergies Allergy/AdvReac Type Severity Reaction Status Date / Time No Known Allergies Allergy Verified 04/26/24 10:32 Exam Const: General: cooperative, healthy appearing and comfortable Nutritional Appearance: average body habitus Orientation/consciousness: oriented to person, oriented to place and oriented to time Resp: Effort & Inspection: normal respiratory effort Cardio: Rate: regular rate Rhythm: regular rhythm Heart sounds: S1 normal heart sound present and S2 normal heart sound present GI: Inspection: normal to inspection : External Female Exam: normal external appearance Speculum Exam - Vagina: normal appearance of the vagina Speculum Exam - Cervix: normal appearance of the cervix Bimanual exam- vagina & uterus: soft Bimanual Exam- Adnexa, other: normal adnexae Assessment and Plan Assessment and plan (1) Excessive bleeding: Code(s): R58 - Hemorrhage, not elsewhere classified Status: Acute Plan Proceed with hysteroscopy/dilatation curettage/polypectomy
--- OUTSIDE RECORDS SUMMARY | 2024-05-04 04:55 | XMS_ITS | Referral Summary ---
Author Organization [facility] HealthCare Care Team Providers Care Cranberry Farm Supervisor Name Role Phone CharAlise gambino Maria Del Rosario [facility] Primary Care Pr ovider Miguel Ángel Diaz MD Unavailable [phone] Encounters Date Type Department Care Team Description 03/15/2024 10:00 AM RED HAT LINUX ADMINISTRATOR Office Visit [facility] Convenient Care at [address] [address] Debra Salomon, TENNILLE Laceration of [...] two courses of methylprednisolone. Evaluation by her MANAGING MEMBER apparently revealed a low positive ds DNA, [...] two courses of methylprednisolone. Evaluation by her MANAGING MEMBER apparently revealed a low positive ds DNA, [...] on file Legal Sex Female 8:38 PM RED HAT LINUX ADMINISTRATOR Gender Identity Not on file Sexual Orientation Not on file Last Filed Vital Signs Vital Sign Reading Time Taken Comments Blood Pressure 104/60 03/15/2024 10:04 AM RED HAT LINUX ADMINISTRATOR Pulse 78 03/15/2024 10:04 AM RED HAT LINUX ADMINISTRATOR Temperature 36.8 C (98.2 F) 03/15/2024 10:04 AM RED HAT LINUX ADMINISTRATOR Respiratory Rate 20 03/15/2024 10:04 AM RED HAT LINUX ADMINISTRATOR Oxygen Saturation 98% 03/15/2024 10:04 AM RED HAT LINUX ADMINISTRATOR Inhaled Oxygen Concentration - - Weight 80.7 kg (178 lb) 03/15/2024 10:04 AM RED HAT LINUX ADMINISTRATOR Height 172.7 cm (5' 8 ) 10/21/2023 [...] a test for HCV RNA (test code 24036) is suggested. For additional information please refer to http://education.[employer]/faq/DMX02s8 (This link is being provided for informational/ educational purposes only.) Blood specimen (specimen) 06/19/2018 11:32 AM CDT 06/19/2018 11:33 AM CDT Narrative Resulting Agency Comment Performing Organization Information: Site ID: [place] Name: Yessenia Mcclure Address: [address] [place] [address] [address] Director: Chinmay Pleitez D.O., MPH [facility] MICROBIOLOGY - GENERA L ORDERABLES Final Result Performing Organization Address City/State/[facility] Co de Phone Number YESSENIA Mishraexa [place] from Last 3 Months or Most Recently Relevant to Health Maintenance Insurance [facility] HMO/PPO Address: [facility] [address] [place] [address] [facility] CHOICE PLUS [facility] HMO/PPO Address: [address] [employer] [facility] H[facility]/PPO Address: [place] [address] Care Teams Cranberry Farm Supervisor Relationship Specialty Start Date End Date Alise White PA PCP - General Physician Slasher Machine Operator 06/02/18 Miguel Ángel Diaz MD [address] [address] Consulting Physician Rheumatology 06/02/18
--- OUTSIDE RECORDS SUMMARY | 2024-05-04 04:55 | XMS_ITS | Clinical Summary ---
Author Organization [facility] HealthCare Care Team Providers Care Cook Barbecue Name Role Phone CharAlise gambino Maria Del Rosario [facility] Primary Care Pr ovider Miguel Ángel Diaz MD Unavailable [phone] Allergies No known active allergies Medications norethindrone-e. [...] two courses of methylprednisolone. Evaluation by her PIANO CASE MAKER apparently revealed a low positive ds DNA, [...] two courses of methylprednisolone. Evaluation by her PIANO CASE MAKER apparently revealed a low positive ds DNA, [...] Department Care Team Description 03/15/2024 10:00 AM LINUX KERNEL DEVELOPER Office Visit [facility] Medical [facility] Convenient Care at [address] [address] Debra Salomon, TENNILLE Laceration of finger of right hand without damage to nail, foreign body presence unspecified, unspecified finger, initial encounter (Primary Dx) from Last 3 Months Social History Tobacco Use Types Packs/Day Years Used Date Smoking Tobacco: Never Assessed Comments Unknown Sex and Gender Information Value Date Recorded Sex Assigned at Not on file Legal Sex Female 8:38 PM LINUX KERNEL DEVELOPER Gender Identity Not on file Sexual Orientation Not on file Obstetrics History Last Filed Vital Signs Vital Sign Reading Time Taken Comments Blood Pressure 104/60 03/15/2024 10:04 AM LINUX KERNEL DEVELOPER Pulse 78 03/15/2024 10:04 AM LINUX KERNEL DEVELOPER Temperature 36.8 C (98.2 F) 03/15/2024 10:04 AM LINUX KERNEL DEVELOPER Respiratory Rate 20 03/15/2024 10:04 AM LINUX KERNEL DEVELOPER Oxygen Saturation 98% 03/15/2024 10:04 AM LINUX KERNEL DEVELOPER Inhaled Oxygen Concentration - - Weight 80.7 kg (178 lb) 03/15/2024 10:04 AM LINUX KERNEL DEVELOPER Height 172.7 cm (5' 8 ) 10/21/2023 [...] a test for HCV RNA (test code 48592) is suggested. For additional information please refer to http://education.[employer]/faq/CWT08z1 (This link is being provided for informational/ educational purposes only.) Blood specimen (specimen) 06/19/2018 11:32 AM CDT 06/19/2018 11:33 AM CDT Narrative Resulting Agency Comment Performing Organization Information: Site ID: [id number] Name: [facility] Address: [address] [place] [address] [place], [place] [address] Director: Chinmay Pleitez D.O., MPH [facility] MICROBIOLOGY - GENERA L ORDERABLES Final Result [facility] [place] from Last 3 Months or Most Recently Relevant to Health Maintenance Insurance [facility] CHOICE PLUS Member Subscriber Plan / Payer (Ef fective 2022-) Name:JenYin Relation to Subscriber:Self Name:JenYin Payer ID:[id number] ([facility]) Type:[facility] HMO/PPO Address: [address] CHOICE PLUS Care Teams Cook Barbecue Relationship Specialty Start Date End Date Alise White PA PCP - General Physician Short Goods Drier 06/02/18 Miguel Ángel Diaz MD [address] [address] Consulting Physician Rheumatology 06/02/18
--- OUTSIDE RECORDS SUMMARY | 2024-05-04 04:55 | XMS_ITS | Data Portability ---
Author Organization [facility] Dayami Bullock Address [address] [place] [address] Care Team Providers Care Grinding Mill Operator Name Role Phone JUAN M BLAIR Primary Care Provider CHANDA Marrero International Project Engineer Assessment No assessment recorded. Plan of Treatment Reminders Order Date Submit Date Provider Last Modified By Organization Details Last Modified Time Details Appointments None recorded. Lab TSH + free T4, serum 2023 024 [employer] [facility], [address], [place], [address], 4 16:52:43 CBC w/ auto diff 2023 024 [facility], [address], [place], [address], 4 16:51:54 iron + TIBC + ferritin, serum 2023 024 [facility], [address], [place], [address], 4 16:51:09 lipid panel, serum 2023 024 [employer] [facility], [address], [place], [address], 4 16:51:22 CMP, serum or plasma 2023 024 [employer] [facility], [address], [place], [address], 4 16:52:34 vitamin B12 + folate, serum or blood 2023 024 [facility] [employer] [facility], [address], [place], [address], 4 16:51:43 HbA1c (hemoglob in A1c), blood 2023 024 [facility] [employer] [facility], [address], [address], [place], [address], 4 16:52:06 Referral None recorded. Procedures None [...] Time Body mass index 25-29 - overweight 179238901 Active 024 Emelia Fallon MA [facility], [place] - [place] 4 10:28:44 Long-term drug therapy Active 024 RAKAN Ly Attn: Ameya campos,[address] [facility], [place], [address], [facility] - [place] 4 00:19:23 Problem Notes None [...] 120 mm[Hg] 82 mm[Hg] Emelia Fallon MA [facility] 4 10:29:45 Date Recorded Body mass index (BMI) Body weight Systolic blood pressure Diastolic blood pressure Systolic blood pressure Diastolic blood pressure Provider Name and Address Organization Details Last Updated DateTime 4 26.5 kg/m2 05851.1 5 g 98 mm[Hg] 70 mm[Hg] 98 mm[Hg] 70 mm[Hg] RAKAN Ly Attn: Ameya campos,[address] [place], [address], [facility] 4 10:45:34 Social History Question Answer Notes LastModified by Organizat ion Details LastModified Time Tobacco Smoking Status Never Smoker Emelia Fallon MA [facility], [facility] 12/06/2023 10:27:38 Do You Have An Advance [...] High Blood Pressure N Atrial Fibrillation N Thyroid Problems N Kidney or Bladder Problems N GI Problems N Depression N COPD N Blood Clots N Have you had a mammogram in the last yea r? N Skin Problems N Anemia N Heart Attack (OR) N Diabetes N Anxiety Disorder N Muscle, Joint, or Bone Problems N Seizures/Epilepsy N Have you had a colonoscopy in the last 1 0 years? N Acid Reflux (GERD) N Cancer N Stroke N Asthma N Allergies N Have you had a PSA blood test in the las t year? N High Cholesterol N Hepatitis N Liver Disease N Headaches N Osteoporosis N Heart Failure N Gynecological History Statement/Question Response Menses Monthly N Duration of Flow (days) Current Control Method None Obstetrics History GPAL:G 1 P 1 0 0 1 Type Value Full Term 1 Induced 0 Spontaneous 0 Premature 0 Living 1 Total 1 Past Encounters Encounter ID Performer Location Encounter Start Date Encounter Closed Date Diagnosis/Indication Diagnosis SNOMED-CT Code Diagnosis ICD10 Code Diagnosis Note [id number] RAKAN Ly [facility] [address] [place] [address] 12/06/2023 10:04:50 12/06/2023 10:57:05 Body mass index 25-29 - overweight 538690244 Z68.26 BMI is 26.5 Adult heal th examination 612926421 Z00.00 Annual wellness exam completed Lightheadedness 74137528 8 R42 Lightheade dness reported. We will await lab values to see if she has any anemia or electrolyt e disturbanc e state 5635990 1 Z39.2 Patient is noted to be several months Menorrhagia 899051757 N9 2.0 Check CBC and iron studies for heavy menstrual cycles Long-term drug therapy 767926246 Z79.899 Routine CMP and vitamin B12 and folate are ordered Cholesterol screening 27 7382786 Z13.220 Fasting lipid panel due Diabetes m ellitus screening 389594254 Z13.1 A1c diabetes screening due for risk assessment Thyroid di sorder screening 591794187 Z13.29 Routine thyroid function testing due especially . Health Concerns Section Related Observation LastModified by Organization Detai ls LastModified Time None Recorded Concern Status LastModified by Organization Details LastModified Time None Recorded Advance Directives Directive N: Payers Encounter Date Sequence Insurance Name Policy Number Policy Gonzalez Covered Member ID Gonzalez Member ID Guarantor Name 12/06/[address] [place] [address] [id number] Jen Montague [id number] Clari Li Notes Date Note Type Note [...] abdominal pain. RAKAN Ly Attn: Accounting[address] [place], [address], [place] - [facility] 12/13/2023 00:20:01 OBGyn Episode No OBEpisode recorded.
--- NOTE | 2024-05-04 06:18 | WPDHPUPDATE1 ---
History and Physical Update Update Date/Time: 05/04/24 06:18 History and Physical has been reviewed, including an updated exam of the patient. There are NO changes in the patient's condition. Risks, benefits, and alternatives have been discussed and questions answered. Patient agrees to proceed with procedure.
--- NOTE | 2024-05-04 07:06 | WPDANESEPPF ---
Anes - Initial Pre Proc Eval Procedure: Operation Date: 05/04/24 08:30 Proposed Procedures p Hysteroscopy Dilation and Curettage with Polypectomy - Yanick Kennedy MD Date/Time: 05/04/24 07:06 Surgeon: Yanick Kennedy MD Pre Op Diagnosis: Ig Bleeding, Uterine Polyps Patient Data Age: 34 Gender: F Height: 1.73 m Weight: 77.3 kg Allergies Allergy/AdvReac Type Severity Reaction Status Date / Time No Known Allergies Allergy Verified 04/26/24 10:32 Home Medications ?Medication ?Instructions ?Recorded ?Confirmed ?Type vits no.126-ferrous fum 1 tablet PO DAILY 07/19/23 04/26/24 History 28 mg iron-folic acid 800 mcg tablet (Classic ) choline 500 mg tablet 500 mg PO DAILY 04/26/24 04/26/24 History doxycycline hyclate 100 mg tablet 100 mg PO DAILY 04/26/24 04/26/24 History spironolactone 50 mg tablet 150 mg PO DAILY 04/26/24 04/26/24 History hydrocodone 5 mg-acetaminophen 325 1 tablet PO Q4H PRN pain #20 tabs 05/04/24 Rx mg tablet Patient hx anesthesia problems: none Family hx anesthesia problems: none Results Review: All pre-operative results and documents have been reviewed as part of the pre-operative evaluation. [facility] Past Medical History Medical History Term and not yet delivered Overweight (BMI 25.0-29.9) Family History Family History Mother Patient's mother is in good health Family history of irritable bowel syndrome Rheumatoid arthritis Father Patient's father is in good health Sibling Patient's sister is in good health Social History Social History Smoking status: Never smoker Second hand tobacco smoke exposure: No Alcohol intake: current Substance use: never Do You Feel Safe in your Home?: Yes Lack of Transportation: No Lack of Food: Never True Current Housing: I Have Housing Concerned About Future Housing: No Difficulty Paying Gas/Electric Bills: No Difficulty Paying for Meds: No Currently Unemployed: No Education: Bachelor's Degree Difficulty w/ Childcare or Family Care: No Living arrangements: with family Spiritual care concerns: No Anes - Eval Final PreProcedure Day of Procedure 05/04/24 07:06 Patient weight: overweight Heart: regular rate and rhythm Lungs: clear to auscultation Airway: Mallampati scale class II Neurological: alert and oriented Last oral intake: >/= 8 hours ASA classification: I Emergent: no Anesthetic plan: proceed Anesthesia type and monitoring: general GIVS and standard monitoring Results Review: All pre-operative results and documents have been reviewed as part of the pre-operative evaluation. Informed Consent: The patient's anesthetic plan and its attendant risks and benefits were discussed with the patient/family/POA. Questions were solicited and answers provided to the satisfaction of the patient/family/POA.
[2024-05-04 07:10] VITALS: BP 113/73; PULSE 77; RESP 14; TEMP 36.7; O2SAT 99
[2024-05-04] MEDS: ACETAMINOPHEN 500 MG TABLET 1000 MG PO (07:10)
[2024-05-04] MEDS: LACTATED RINGERS 1,000 ML 30 ML IV CONT (07:10)
[2024-05-04 07:41] LABS: BEDSIDEPREGUCG Negative (Negative)
[2024-05-04] MEDS: LIDOCAINE 1% LOCAL INJ 10 ML VIAL 9 ML INFILTRATE (09:27)
--- NOTE | 2024-05-04 09:45 | W.PM.PROC2 ---
Procedure Note - Detailed Date of Procedure 05/04/24 Pre-op Diagnosis Ig Bleeding, Uterine Polyps Post-op Diagnosis Same Procedure Performed Hysteroscopy/polypectomy/dilatation and curettage Surgeon Yanick Kennedy MD Anesthesia MAC and Local Indications 34-year-old female with heavy bleeding suspected uterine polyp Findings Small polyp was seen blocking the right fallopian tube Description of Procedure Patient was prepped draped in sterile fashion placed in the dorsal lithotomy position. Under excellent IV sedation a weighted speculum was placed in the posterior fornix vagina. Anterior lip of the cervix grasped with a single-tooth tenaculum. 2.5cc of 1% xylocaine anesthesia placed at 2, 4, 6, 8:00 a.m. of the cervix. Uterus sounded to 8cm in the retroverted. The 5mm visualizing hysteroscope was inserted a small uterine polyp was seen at the fallopian tube os this was removed without difficulty with the small of the uterus was then scraped over the entire 360?. The loss estimated 5cc. All sponge, needle, instrument counts were correct. There were no immediate complications Estimated Blood Loss 5 Drains No Packing No Pathology Yes Complications No immediate complications Condition Stable Disposition PACU
[2024-05-04 09:50] VITALS: BP 104/63; PULSE 73; RESP 14; O2SAT 99
[2024-05-04 10:20] VITALS: BP 108/87; PULSE 57; RESP 16
[2024-05-04 10:50] VITALS: BP 116/68; PULSE 60; RESP 16
== END 2024-05-04 11:01 | disposition home or self-care (01) ==
PROVIDERS: PCP Physician Assistant; Visit Provider Obstetrics & Gynecology
PROC: 0U5B8ZZ Destruction of Endometrium, Via Natural or Artificial Opening Endoscopic (ICD-10-PCS; CPT 58563; principal; 2024-05-04 08:30)
DX: N93.9 Abnormal uterine and vaginal bleeding, unspecified (principal); N84.0 Polyp of corpus uteri
CPT/HCPCS: 58558; 36415; 85014; 85018; 88305; A9270; J1100; J2003; J2250; J2405; J2704; J3010; J7120